=== PATIENT | male | born 1995 | race African-American/Black ===

== ENCOUNTER 2020-03-04 09:10 | Emergency (ER) | payer BC, OTHER ==
--- NOTE | 2020-03-04 09:33 | RAD ---
Right knee 4 views HISTORY: Injury. FINDINGS: Joint spaces are preserved. No acute fracture, dislocation, or fluid distention of the supr apatellar bursa. IMPRESSION : No abnormalities are demonstrated.
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
== END 2020-03-04 09:55 | disposition home or self-care (01) ==
LOC: ERS 09:10
DX: M25.561 Pain in right knee (principal); M79.661 Pain in right lower leg; V89.2XXA Person injured in unspecified motor-vehicle accident, traffic, initial encounter
CPT/HCPCS: 71045; G0390